=== PATIENT | female | born 1945 | race Caucasian/White ===

== ENCOUNTER 2024-10-30 15:45 | Observation (INO) | payer MEDICARE, SELFPAY ==
--- NOTE | 2024-10-30 15:53 | CA_ITS ---
APPROVED REPORT EXAM: Comprehensive 2D, Doppler, and color-flow Echocardiogram Assistant Prosecuting Attorney: Katie Romeo RVT Ht: 5 ft 7 in Wt: 180lbs BSA: 1.93 BP: 169/110 mmHg Indications: ANGINA,SHORTNESS OF BREATH 2D Dimensions Left Atrium 5.00 cm F: 2.7 - 3.8 LA Volume 47.50 mL RVID Base (AP4) 3.29 cm (M/F) 2.5-4.1 LA Volume Index 24.48 mL/m2 (M/F) 16-34 LVOT 2.07 cm (M/F) 1.5-2.5 EF AP4 52.50 % GL Strain -12.6 % M-Mode Dimensions RVDd 2.67 cm (0.9-2.6) LVDd 6.57 cm (3.5-5.7) Ao Diam 2.91 cm (2.0-3.7) LVDs 4.72 cm (3.5-5.7) IVSd 0.62 cm (0.6-1.1) PWd 0.67 cm (0.6-1.1) EF (Teich) 53.30% FS 28.20% EDV (Teich) 221.30 mL ESV (Teich) 103.40 mL LV Diastology E Decel Time 131 (160-240 msec) E/A Ratio 1.1 MED E' 8.6 (>= 7 cm/sec) E'/MED E' Ratio 7.28 (<= 14) LAT E' 6.2 (>= 10 cm/sec) E/LAT E' Ratio 10.10 (<= 14) Aortic Valve LVOT Max 105.0 (70-110 cm/s) SALVADOR Index 1.01 cm2/m2 LVOT VTI 16.51 cm AoV Peak Abdirashid. 142.0 (50-130 cm/s) AO Peak GR. 6.90 mmHg AO Mean GR. 3.80 (<5 mmHg) AO VTI 28.7 (18-25 cm) SALVADOR (VTI) 1.94 (2.5-4.5 cm2) Mitral Valve MV E Max Abdirashid. 63.0 (40-130 cm/s) MV A Velocity 56.0 (40-130 cm/s) E/A Ratio 1.12 MV Decel. Time 131 (160-240 ms) Left Ventricle The left ventricle is normal size. The left ventricular systolic function is normal. The left ventricular ejection fraction is within the normal range. There is increased LV wall thickness. There is normal LV segmental wall motion. Transmitral Doppler flow pattern suggests impaired LV relaxation. LVEF is 60%. Right Ventricle Right ventricle is mildly dilated. The right ventricular systolic function is normal. Atria Left atrium is mildly dilated. Right atrium is mildly dilated. There is no Doppler evidence of interatrial shunt. Aortic Valve The aortic valve is mildly thickened. There is no aortic valvular stenosis. No aortic regurgitation is present. Mitral Valve The mitral valve is normal in structure. No evidence of mitral valve stenosis. Trace mitral regurgitation. Tricuspid Valve Tricuspid valve is grossly normal in structure and function. Trace tricuspid regurgitation. There is insufficient TR jet to estimate RVSP. Pulmonic Valve The pulmonary valve is normal in structure. Trace pulmonic regurgitation. Great Vessels The aortic root is normal in size. IVC is normal in size and collapses >50% with inspiration. Pericardium There is no pericardial effusion. Other Information Study Quality: Fair Conclusion Normal biventricular systolic function. Mild RV dilation. Mild biatrial dilation. No significant valvular stenosis or regurgitation. Electronically signed by : Ladonna Schultz MD 10/31/2024 13:13:23
--- NOTE | 2024-10-30 15:59 | PC.NURSE ---
arrived by w/c from lobby admissions
[2024-10-30 16:10] VITALS: BP 162/73; PULSE 59; RESP 18; TEMP 36.8; O2SAT 97; BMI 27.8
--- NOTE | 2024-10-30 16:11 | EXP.HP ---
History of Present Illness *Admission Date: 10/30/24 *Reason for visit:: chest pain *History of present illness: Ms. Chen is a 79-year-old female who presented to cardiology clinic as an outpatient for preoperative evaluation today. She reportedly has been having some chest and back pain that is gotten worse over the past few weeks. Is supposed to be having kyphoplasty on a thoracic compression fracture this coming week but needed medical clearance. History appeared minimal with hypertension and hypothyroid on initial presentation to cardiology. Medicine was consulted for admission due to concern for unstable angina. I agreed to admit for further care. Upon arrival to the floor, patient's records from [facility] were obtained and further history elicited from patient. It appears that she has metastatic colon cancer (stage IV) with history of colon resection, mets to her liver and multiple nodules on bilateral lungs diffusely 5 to 10 mm in size. Patient reports that she was in the ER last week in [place] due to pain and was told she had had a heart attack. Troponin had a delta from 17-27. Also reports history of needing multiple revisions of hip replacement due to infection. Last surgery was in April. Has had to have hardware exchanged per her report. Saw anesthesia earlier this week for preoperative assessment, recommended she have cardiology clearance. Saw cardiology at [facility] who recommended further testing. This led to her coming to [facility] for further evaluation. 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 Is a former smoker. Quit smoking about 12 years ago. Currently has hypertension on lisinopril. Hypothyroid on levothyroxine. Unclear the source of her thoracic vertebral compression fracture. Denies any falls. I am suspicious it may be pathologic given her metastatic cancer. Was previously on salvage chemotherapy but stopped taking medications within the past few months. [facility] Disclaimer: The information contained in this section may have been updated after the patient was seen, as this information can be updated by other users. Medical History (Updated 10/30/24 @ 17:44 by Ryan Bianchi MD) Hypothyroid HTN (hypertension) Colon cancer Surgical History History of hip replacement Social History Smoking Status: Former smoker alcohol intake: never current occupational status: retired Travel in the last 8 weeks?: Inside the [place] Have you lived/traveled outside US in past 30 days?: No Contact w/someone who lives/traveled outside US past 30 days?: No Exposure to someone with infectious disease in past 14 days?: No Do you have a fever (greater than 100.4 F or 38 C)?: No Have you tested positive for COVID-19?: No Exposed to someone with COVID-19 in past 14 days?: No Do you have a sore throat?: No Do you have a cough?: No Do you have any weakness?: No Do you have any diarrhea?: No Are you experiencing any unusual bleeding?: No Do you have any muscle aches/pain?: No Do you have any abdominal pain?: No Are you experiencing loss of taste or smell?: No Other Medical History Have you received the Pneumonia Vaccine: No Meds Home Medications and Allergies Home Medications ?Medication ?Instructions ?Recorded ?Confirmed ?Type levothyroxine 125 mcg capsule 125 mcg PO DAILY 10/30/24 10/30/24 History lisinopril 5 mg tablet 5 mg PO DAILY 10/30/24 10/30/24 History New Prescriptions to Start Prescriptions: Allergies Allergy/AdvReac Type Severity Reaction Status Date / Time oxycodone AdvReac Mild Rash Verified 10/30/24 17:14 Exam Constitutional Constitutional: no acute distress, average body habitus, chronically ill appearing and cooperative *Routine HEENT Exam Head: Present normocephalic Eye: Present EOMI and PERRL ENT: Present mucous membranes moist *Routine Neck Exam Neck: Present supple; Absent lymphadenopathy *Routine Respiratory Exam Respiratory: Present prolonged expiratory phase; Absent rhonchi, wheezes or crackles *Routine Cardiovascular Exam Cardiovascular: Present RRR *Routine Abdominal Exam Abdominal: Present soft and normoactive bowel sounds; Absent tenderness *Routine Rectal Exam Rectal:: deferred *Routine Genitalia Exam Genitalia:: deferred *Routine Extremities Exam Extremities: Absent cyanosis, clubbing or edema *Routine Skin Exam Skin: Present warm; Absent rash *Routine Neurological Exam Neurological: Present alert, oriented X3 and moving all extremities; Absent altered mental status Comments: Poor historian Assessment and Plan *Assessment and plan (1) Unstable angina: Status: Acute Category: Medical Code(s): I20.0 - Unstable angina (2) HTN (hypertension): Status: Chronic Category: Medical Code(s): I10 - Essential (primary) hypertension (3) Hypothyroid: Status: Chronic Category: Medical Code(s): E03.9 - Hypothyroidism, unspecified (4) Malignant neoplasm of colon metastatic to lung: Status: Acute Category: Medical Code(s): C18.9 - Malignant neoplasm of colon, unspecified; C78.00 - Secondary malignant neoplasm of unspecified lung (5) Vertebral compression fracture: Status: Acute Category: Medical Code(s): M48.50XA - Collapsed vertebra, not elsewhere classified, site unspecified, initial encounter for fracture Plan 79-year-old female with vertebral compression fracture. Presented for preop evaluation. Concern for unstable angina. Discussed case with cardiology, request admission for further management. I agreed to admit for further workup. On further history, appears patient has metastatic colon cancer and may have recently had an NE. Necessitating further workup. Problems addressed as follows: Unstable angina Hypertension - Unclear if patient is having chest pain or referred pain from her back. Did have a delta troponin on review of outside records from hospital visit last week. - Hypertensive on presentation systolic 162, diastolic 73 - Additional 5 mg lisinopril. Increase lisinopril to 10 mg daily - EKG ordered, echo ordered, cardiology consulted to evaluate the morning - Initial labs with white count of 6.6, hemoglobin 11.5, platelets 183. Initial troponin less than 0.01. Kidney function normal with BUN 16, creatinine 0.6. Potassium 3.4. Will replace per electrolyte protocol. - Repeat CBC, CMP, magnesium ordered for the morning Hypothyroid: TSH pending, continue levothyroxine 125 mcg daily Metastatic colon cancer: Reportedly has lung mets per my review of imaging performed within the past week at [facility] in [place]. Will repeat CT chest without contrast and CT head due to patient's difficulty with history. Concern for possible cerebral mets. - Concern her compression fracture may be pathologic. Will evaluate vertebrae on CT Vertebral compression fracture: Pain (possibly from cancer versus fracture: - Patient appears to be on oxycodone 5 4 times a day and gabapentin 300 mg nightly. Will continue this regimen for now. Monitor for toxicity Full code PLOV Regular diet
[2024-10-30 16:14] VITALS: PULSE 70
--- NOTE | 2024-10-30 16:44 | CT_ITS ---
PROCEDURE INFORMATION: Exam: CT Head Without Contrast Exam date and time: 10/30/2024 6:16 PM Age: 79 years old Clinical indication: Other: Confusion TECHNIQUE: Imaging protocol: Computed tomography of the head without contrast. Radiation optimization: All CT scans at this facility use at least one of these dose optimization techniques: automated exposure control; mA and/or kV adjustment per patient size (includes targeted exams where dose is matched to clinical indication); or iterative reconstruction. COMPARISON: No relevant prior studies available. FINDINGS: Brain: No hemorrhage. Unremarkable white matter. No mass effect. Cerebral ventricles: No ventriculomegaly. Paranasal sinuses: Visualized sinuses are unremarkable. No fluid levels. Mastoid air cells: Visualized mastoid air cells are well aerated. Bones: Unremarkable. No acute fracture. Soft tissues: Unremarkable. IMPRESSION: No acute intracranial abnormality.
--- NOTE | 2024-10-30 16:44 | CT_ITS ---
PROCEDURE INFORMATION: Exam: CT Chest Without Contrast; Diagnostic Exam date and time: 10/30/2024 6:18 PM Age: 79 years old Clinical indication: Shortness of breath; Additional info: SOA TECHNIQUE: Imaging protocol: Diagnostic computed tomography of the chest without contrast. Radiation optimization: All CT scans at this facility use at least one of these dose optimization techniques: automated exposure control; mA and/or kV adjustment per patient size (includes targeted exams where dose is matched to clinical indication); or iterative reconstruction. COMPARISON: No relevant prior studies available. FINDINGS: Lungs: Multiple noncalcified pulmonary nodules are identified. Region size from a few mm up to the largest measuring 11 mm noted within the left lower lobe. There are few subcentimeter calcified granulomas identified. Pleural spaces: Unremarkable. No pneumothorax. No pleural effusion. Heart: See Vasculature finding. Coronary arteries: Three-vessel coronary artery calcifications. Lymph nodes: Unremarkable. No enlarged lymph nodes. Vasculature: The mediastinal structures including the esophagus, trachea, great vessels, and heart show no evidence of injury or acute pathologic processes. Liver: partially visualized low-attenuation region within the posterior segment right hepatic lobe measures 5.6 cm. This is not well evaluated on this exam. Suggestion that it could be a recent cryoablation or radiofrequency ablation site for an underlying liver tumor although please correlate clinically as a hepatic malignancy or hepatic abscess would not be excluded. Acute. Mild nodular surface architecture of the liver consistent with cirrhosis. Partially visualized simple hepatic cyst measures 5.3 cm. Spleen: Numerous splenic granulomas noted. Bones/joints: Compression fracture age indeterminate but there is some underlying sclerosis within a. Could be a pathologic compression fracture or a subacute compression fracture with healing. This is noted at the level of T12. Soft tissues: Unremarkable. IMPRESSION: 1. Numerous noncalcified pulmonary nodules. This should be considered pulmonary metastatic disease until proven otherwise. Patient does have MediPort catheter please correlate for history of underlying malignancy that is currently being treated. 2. Partially visualized low-attenuation region within the posterior segment right hepatic lobe measures 5.6 cm. This is not well evaluated on this exam. Suggestion that it could be a recent cryoablation or radiofrequency ablation site for an underlying liver tumor although please correlate clinically as a hepatic malignancy or hepatic abscess would not be excluded. Mild nodular surface architecture of the liver consistent with cirrhosis. 3. Compression fracture age indeterminate but there is some underlying sclerosis within a. Could be a pathologic compression fracture or a subacute compression fracture with healing. This is noted at the level of T12.
[2024-10-30 16:52] LABS: Basophils % 0.6 % (0.1-2.0); Eosinophils # 0.1 Kmm3 (0.0-0.4); Eosinophils % 1.2 % (0.1-12.0); Hematocrit 35.2 % (37.0-47.0); Hemoglobin 11.5 g/dL (12.2-16.2); Immature Granulocytes # 0.02 10^3uL; Immature Granulocytes % 0.3 %; Lymphocytes # 1.3 K/mm3 (0.7-4.5); Lymphocytes % 19.5 % (10-50); Mean Corpuscular HGB Conc 32.7 g/dL (31.8-35.4); Mean Corpuscular Hemoglobin 27.6 pg (27.0-31.2); Mean Corpuscular Volume 84.4 fl (81-99); Mean Platelet Volume 9.1 fl (7.4-10.4); Monocytes # 0.6 K/mm3 (0.1-1.0); Monocytes % 8.3 % (1.7-9.3); Neutrophils # 4.7 K/mm3 (1.8-7.8); Neutrophils % 70.1 % (37.0-80.0); Nucleated Red Blood Cells # 0 10^3/uL; Nucleated Red Blood Cells % 0 %; Platelet Count 183 K/mm3 (142-424); Red Blood Count 4.17 M/mm3 (4.20-5.40); Red Cell Distribution Width 17.2 % (11.5-17.5); Red Cell Distribution Width-SD 52.7 fL; White Blood Count 6.6 K/mm3 (4.8-10.8)
[2024-10-30 17:31] LABS: Alanine Aminotransferase 16 U/L (12-78); Albumin Level 3.6 g/dl (3.5-5.0); Albumin/Globulin Ratio 1.1 (1.1-1.8); Alkaline Phosphatase 89 U/L (38-126); Anion Gap 6.4 mEq/L (5-15); Aspartate Amino Transferase 26 U/L (14-36); Bilirubin,Total 0.6 mg/dl (0.2-1.3); Blood Urea Nitrogen 16 mg/dl (7-17); Calcium 8.8 mg/dl (8.4-10.2); Carbon Dioxide 26 mmol/L (22.0-30.0); Chloride 108 mmol/L (98-107); Creatinine Clearance Estimated 60 mL/min (50-200); Estimated Glomerular Filt Rate 97 ml/min (>60); GFR (African American) 117 ML/MIN (>60); Globulin 3.3 g/dL (1.3-3.2); Glucose 105 mg/dl (74-100); Magnesium 1.8 mg/dl (1.6-2.3); Potassium 3.4 mmoL/L (3.5-5.1); Sodium 137 mmol/L (136-145); Total Protein,Serum 6.9 g/dl (6.3-8.2)
[2024-10-30 17:47] LABS: Troponin I < 0.01 ng/ml (0.00-0.034)
[2024-10-30 18:01] LABS: Thyroid Stimulating Hormone 3.08 uIU/mL (0.465-4.68)
[2024-10-30 18:02] LABS: Microscopic, Urine URINE MICROSCOPIC (MICROSCOPIC)
[2024-10-30] MEDS: LISINOPRIL 5MG TABLET 5 MG PO (18:40)
[2024-10-30] MEDS: ENOXAPARIN 40MG/0.4ML SYRINGE 40 MG SUBCUT (18:41)
[2024-10-30 18:43] LABS: Appearance,Urine CLEAR (Clear); Blood, Urine Negative (Negative); Color,Urine YELLOW (Yellow); Glucose,Urine (UA) Negative (Negative); Ketones,Urine Negative (Negative); Leukocyte Esterase,Urine Negative (Negative); Nitrate,Urine Negative (Negative); Protein,Urine Negative (Negative); Specific Gravity, Urine 1.025 (1.005-1.030); Urobilinogen,Urine 0.2 EU/dl (0.2)
[2024-10-30 19:10] LABS: Bilirubin,Urine 1+ (Negative)
[2024-10-30 19:45] VITALS: BP 167/65; PULSE 64; RESP 20; TEMP 37.5; O2SAT 97
[2024-10-30 20:00] VITALS: PULSE 70
[2024-10-30 20:15] LABS: Bacteria,Urine Trace /lpf; Calcium Oxalate Crystals,Urine 1+ /lpf; Mucus,Urine Trace /lpf
[2024-10-30] MEDS: GABAPENTIN 300MG CAPSULE 300 MG PO (21:55)
[2024-10-31] VITALS: BP 102/50; PULSE 69; RESP 18; TEMP 37.2; O2SAT 99
--- NOTE | 2024-10-31 | CA_ITS ---
APPROVED REPORT Exam: Pharmacologic Technologist: Jovana Salmon Ht: 5 ft 7 in Wt: 177 lbs BSA: 1.92 m2 Medical History Medications: Levothyroxine, Lisinopril Stress Test Details Test: Lexiscan HR Resting HR: 67 bpm Max Heart Rate (APMHR): 143.939048 bpm Max HR Achieved: 87 bpm Target HR (85% APMHR): 121.554234 bpm % of APMHR: 60.84 Recovery HR: 82 bpm BP Resting BP: 157.0/71.0 mmHg Max BP: 157.0/71.0 mmHg Recovery BP: 143.0/64.0 mmHg ECG Resting ECG: SR Stress ECG Conclusion Symptoms: SOA, nausea. Arrhythmias/Ectopy: None. Lexiscan. ST-T Changes: None. Electronically signed by : Ladonna Schultz MD 11/03/2024 12:02:15
[2024-10-31] MEDS: hydrOXYzine pamoate 25MG CAPSULE 25 MG PO (00:03)
[2024-10-31 04:00] VITALS: BP 125/48; PULSE 73; RESP 20; TEMP 37.5; O2SAT 100; BMI 29.2
[2024-10-31 04:50] VITALS: PULSE 60
--- NOTE | 2024-10-31 06:39 | PC.NURSE ---
Pt stated she wears 2.5LNC at home, and stated she was sob. 2.5LNC was placed on pt. v/s, ox4. No acute events occured during shift. Plan of care ongoing.
[2024-10-31] MEDS: LEVOTHYROXINE 125MCG (0.125MG) TAB 125 MCG PO (06:45)
[2024-10-31] MEDS: ACETAMINOPHEN 325MG TAB 650 MG PO (07:45)
[2024-10-31 07:55] LABS: Basophils % 0.3 % (0.1-2.0); Eosinophils # 0.1 Kmm3 (0.0-0.4); Eosinophils % 1.2 % (0.1-12.0); Hematocrit 32.2 % (37.0-47.0); Hemoglobin 10.4 g/dL (12.2-16.2); Immature Granulocytes # 0.02 10^3uL; Immature Granulocytes % 0.3 %; Lymphocytes # 1.5 K/mm3 (0.7-4.5); Lymphocytes % 24.7 % (10-50); Mean Corpuscular HGB Conc 32.3 g/dL (31.8-35.4); Mean Corpuscular Hemoglobin 26.9 pg (27.0-31.2); Mean Corpuscular Volume 83.4 fl (81-99); Mean Platelet Volume 9.5 fl (7.4-10.4); Monocytes # 0.6 K/mm3 (0.1-1.0); Neutrophils # 3.8 K/mm3 (1.8-7.8); Neutrophils % 63.5 % (37.0-80.0); Nucleated Red Blood Cells # 0 10^3/uL; Nucleated Red Blood Cells % 0 %; Platelet Count 172 K/mm3 (142-424); Red Blood Count 3.86 M/mm3 (4.20-5.40); Red Cell Distribution Width 17.2 % (11.5-17.5); Red Cell Distribution Width-SD 51.8 fL; White Blood Count 5.9 K/mm3 (4.8-10.8)
--- NOTE | 2024-10-31 07:58 | HMH.PHAINT1 ---
Pharmacy Intervention Comments: HOME MEDICATION LIST VERIFIED USING LIST FROM OUTPATIENT PHARMACY AND PT INTERVIEW
[2024-10-31 08:00] VITALS: PULSE 60
[2024-10-31 08:06] LABS: Alanine Aminotransferase 13 U/L (12-78); Alkaline Phosphatase 79 U/L (38-126); Anion Gap 3.9 mEq/L (5-15); Aspartate Amino Transferase 23 U/L (14-36); Bilirubin,Total 0.8 mg/dl (0.2-1.3); Blood Urea Nitrogen 10 mg/dl (7-17); Calcium 8.7 mg/dl (8.4-10.2); Carbon Dioxide 28 mmol/L (22.0-30.0); Chloride 108 mmol/L (98-107); Creatinine Clearance Estimated 63 mL/min (50-200); Estimated Glomerular Filt Rate 120 ml/min (>60); GFR (African American) 145 ML/MIN (>60); Globulin 2.9 g/dL (1.3-3.2); Glucose 120 mg/dl (74-100); Magnesium 1.7 mg/dl (1.6-2.3); Potassium 3.9 mmoL/L (3.5-5.1); Sodium 136 mmol/L (136-145); Total Protein,Serum 5.9 g/dl (6.3-8.2)
[2024-10-31 08:30] LABS: Chol/HDL Ratio 3.5 (1-3.5); Cholesterol 144 mg/dl (140-200); HDL Cholesterol 41 mg/dl (40-60); Triglycerides 78 mg/dl (30-150); VLDL Cholesterol 16 mg/dL (0-40)
[2024-10-31 08:41] LABS: Direct LDL Cholesterol 67.04 mg/dL (100-129)
[2024-10-31] MEDS: SODIUM CHLORIDE 0.9% 10ML SYR (RAD ONLY) 10 ML IV (09:00)
[2024-10-31] MEDS: SODIUM CHLORIDE 0.9% 10ML FLUSH SYRINGE 10 ML IV (09:00)
--- NOTE | 2024-10-31 09:17 | PC.NURSE ---
Pt off floor for test.
[2024-10-31] MEDS: REGADENOSON 0.4MG/5ML SYRINGE 0.4 MG IV (10:10)
--- NOTE | 2024-10-31 10:24 | NM_ITS ---
APPROVED REPORT Exam: Nuclear Stress Test Indication: h/o NE, hypertension, cad, fm hx., sob, palpitations, fatigue, pre-op Patient Location: Outpatient Stress Tech: Jovana Glez [place] Tech:Michelle Delcid, ARRT RT (R)(N)(M) Ht: 5 ft 7 in Wt: 177 lbs Bra Size: d HR: 67 bpm BP: 157/71 mmHg BSA: 1.92 m2 TID: 1.03 BMI: 27.7 History: h/o NE, hypertension, cad, fm hx., sob, palpitations, fatigue, pre-op patient could not lay on stomach for prone images. Procedure: Patient received 0.4 mg of intravenous Lexiscan, resting heart rate 67 bpm, resting blood pressure 157/71 mmHg, with Lexiscan maximum heart rate achieved was 89 bpm which is % of the maximum predicted heart rate and blood pressure was 145/58 mmHg. With Lexiscan, patient denied any complaint of chest pain. Cardiac Stress and Resting SPECT Images: Cardiac Stress and Resting SPECT images were obtained using technetium 99m Myoview 30.9 mCi stress and 10.02 mCi at rest. The patient is unable to lie on her abdomen. Therefore, prone stress imaging could not be performed. Raw images also demonstrate significant soft tissue overlap with the cardiac borders. This may affect the diagnostic interpretation of the study findings. Resting and stress imaging in supine positions demonstrate no evidence of fixed or reversible perfusion defects. Gated imaging demonstrates normal global and regional LV systolic function. LVEF is calculated at 61%. Conclusion: No evidence of fixed or reversible perfusion defects. Gated imaging demonstrates normal global and regional LV systolic function. LVEF is calculated at 61%. Electronically signed by : Ladonna Schultz MD 10/31/2024 13:09:07
--- NOTE | 2024-10-31 10:45 | EXP.CARD.CON ---
History of Present Illness History of Present Illness Consult date: 10/31/24 Chief complaint: chest pain, soa, weakness History of present illness: 79-year-old white female new to our practice as an outpatient yesterday referred for evaluation of recent NE at outside facility needing surgical clearance for thoracic compression fracture in the setting of stage IV colon cancer with mets to lungs and liver. Patient denies prior cardiac history. States she presented to [place] emergency room several weeks ago with shortness of breath and weakness and was found to have elevated troponin and kept overnight for observation. She was told she would need cardiac clearance before she could have her thoracic kyphoplasty scheduled for next week. Her extensive cancer history is noted but she is planning to proceed with kyphoplasty due to his severe debilitating pain. Patient states she was on chemotherapy but stopped this several months ago due to intolerance. She is planning to follow-up with another oncologist in [place] to try another chemotherapy soon. Despite all of this patient reports she lives independently and is able to care for herself. [facility] Disclaimer: The information contained in this section may have been updated after the patient was seen, as this information can be updated by other users. Medical History Hypothyroid HTN (hypertension) Colon cancer Surgical History History of hip replacement Social History Smoking Status: Former smoker alcohol intake: never current occupational status: retired Travel in the last 8 weeks?: Inside the [place] Have you lived/traveled outside US in past 30 days?: No Contact w/someone who lives/traveled outside US past 30 days?: No Exposure to someone with infectious disease in past 14 days?: No Do you have a fever (greater than 100.4 F or 38 C)?: No Have you tested positive for COVID-19?: No Exposed to someone with COVID-19 in past 14 days?: No Do you have a sore throat?: No Do you have a cough?: No Do you have any weakness?: No Do you have any diarrhea?: No Are you experiencing any unusual bleeding?: No Do you have any muscle aches/pain?: No Do you have any abdominal pain?: No Are you experiencing loss of taste or smell?: No Review of Systems Constitutional Constitutional: Reports fatigue and Reports weakness Eyes Eyes: Denies loss of vision ENT Ears, Nose, Mouth, and Throat: Reports hearing loss and Reports vertigo *Cardiovascular Cardiovascular: Denies chest pain, Reports dyspnea and Denies syncope *Respiratory Respiratory: Denies cough and Reports dyspnea *Gastrointestinal Gastrointestinal: Denies change in stool character, Denies nausea and Denies vomiting *Musculoskeletal Musculoskeletal: Reports muscle weakness Integumentary/Breasts Skin/Breast: Denies changing lesions *Neurologic Neurologic: Denies loss of vision, Denies syncope, Reports vertigo and Reports weakness Endocrine Endocrine: Reports fatigue Exam Data for Last 24 hours Vital signs and Labs for Last 24 Hours: Temp Pulse Resp BP Pulse Ox O2 Del Method O2 Flow Rate 99.5 F 60 20 125/48 L 100 Nasal Cannula 2.5 10/31/24 04:00 10/31/24 04:50 10/31/24 04:00 10/31/24 04:00 10/31/24 04:00 10/31/24 07:50 10/31/24 07:50 Laboratory Results - last 24 hr 10/30/24 16:40: WBC 6.6, RBC 4.17 L, Hgb 11.5 L, Hct 35.2 L, MCV 84.4, MCH 27.6, MCHC 32.7, RDW 17.2, Plt Count 183, MPV 9.1, Neut % (Auto) 70.1, Lymph % (Auto) 19.5, [place] % (Auto) 8.3, Eos % (Auto) 1.2, Baso % (Auto) 0.6, Neut # (Auto) 4.7, Lymph # (Auto) 1.3, [place] # (Auto) 0.6, Eos # (Auto) 0.1, Baso # (Auto) 0.0, Sodium 137, Potassium 3.4 L, Chloride 108 H, Carbon Dioxide 26, Anion Gap 6.4, BUN 16, Creatinine 0.60, Estimated Creat Clear 60, Estimated GFR 97, Est GFR ( Amer) 117, Glucose 105 H, Calcium 8.8, Magnesium 1.8, Total Bilirubin 0.6, AST 26, ALT 16, Alkaline Phosphatase 89, Troponin I < 0.01, Total Protein 6.9, Albumin 3.6, Globulin 3.3 H, Albumin/Globulin Ratio 1.1, TSH 3.08 10/30/24 18:00: Urine Color Yellow, Urine Appearance Clear, Urine pH 6.0, Ur Specific [place] 1.025, Urine Protein Negative, Urine Glucose (UA) Negative, Urine Ketones Negative, Urine Blood Negative, Urine Nitrate Negative, Urine Bilirubin 1+ A, Urine Urobilinogen 0.2, Ur Leukocyte Esterase Negative, Urine RBC 5-10, Urine WBC 3-5, Calcium Oxalate Crystal 1+, Urine Bacteria Trace, Urine Mucus Trace 10/31/24 07:30: WBC 5.9, RBC 3.86 L, Hgb 10.4 L, Hct 32.2 L, MCV 83.4, MCH 26.9 L, MCHC 32.3, RDW 17.2, Plt Count 172, MPV 9.5, Neut % (Auto) 63.5, Lymph % (Auto) 24.7, [place] % (Auto) 10.0 H, Eos % (Auto) 1.2, Baso % (Auto) 0.3, Neut # (Auto) 3.8, Lymph # (Auto) 1.5, [place] # (Auto) 0.6, Eos # (Auto) 0.1, Baso # (Auto) 0.0, Sodium 136, Potassium 3.9, Chloride 108 H, Carbon Dioxide 28, Anion Gap 3.9 L, BUN 10 D, Creatinine 0.50 L, Estimated Creat Clear 63, Estimated GFR 120, Est GFR ( Amer) 145 D, Glucose 120 H, Calcium 8.7, Magnesium 1.7, Total Bilirubin 0.8, AST 23, ALT 13, Alkaline Phosphatase 79, Total Protein 5.9 L, Albumin 3.0 L D, Globulin 2.9, Albumin/Globulin Ratio 1.0 L, Triglycerides 78, Cholesterol 144, LDL Cholesterol Direct 67.04 L, VLDL Cholesterol 16, HDL Cholesterol 41, Cholesterol/HDL Ratio 3.5 I & O for Last 24 hours: Intake & Output 10/28/24 10/29/24 10/30/24 10/31/24 23:59 23:59 23:59 23:59 Intake Total 120 / 120 Output Total 600 / 600 Balance -600 / -480 120 / 120 Weight 177 lb 12.8 oz 186 lb 9.6 oz Constitutional Constitutional: no acute distress and cooperative *Routine HEENT Exam Eye: Present PERRL *Routine Respiratory Exam Respiratory: Present CTA bilaterally; Absent accessory muscle use, wheezes or crackles *Routine Cardiovascular Exam Cardiovascular: Present RRR, Normal S1 and Normal S2; Absent murmur, gallop or rubs *Routine Abdominal Exam Abdominal: Present soft; Absent tenderness *Routine Extremities Exam Extremities: Present pulses intact; Absent cyanosis or edema *Routine Skin Exam Skin: Present intact; Absent erythema or wounds *Routine Neurological Exam Neurological: Present alert and oriented X3 Routine Psychiatric Exam Psychiatric: Present cooperative Meds Home Medications and Allergies Home Medications ?Medication ?Instructions ?Recorded ?Confirmed ?Type gabapentin 300 mg capsule 300 mg PO HS 10/30/24 10/31/24 History hydroxyzine pamoate 25 mg capsule 25 mg PO HS 10/30/24 10/30/24 History levothyroxine 125 mcg capsule 125 mcg PO DAILY 10/30/24 10/30/24 History lisinopril 5 mg tablet 10 mg (2 x 5 mg) PO DAILY 30 days 10/31/24 10/30/24 Rx #30 tabs tizanidine 2 mg tablet 2 mg PO HS 10/31/24 10/31/24 History New Prescriptions to Start Prescriptions: Allergies Allergy/AdvReac Type Severity Reaction Status Date / Time oxycodone AdvReac Mild Rash Verified 10/30/24 17:14 Assessment and Plan *Assessment and plan (1) Unstable angina: Status: Acute Category: Medical Code(s): I20.0 - Unstable angina (2) Malignant neoplasm of colon metastatic to lung: Status: Acute Category: Medical Code(s): C18.9 - Malignant neoplasm of colon, unspecified; C78.00 - Secondary malignant neoplasm of unspecified lung (3) Vertebral compression fracture: Status: Acute Category: Medical Code(s): M48.50XA - Collapsed vertebra, not elsewhere classified, site unspecified, initial encounter for fracture (4) Hypothyroid: Status: Chronic Category: Medical Code(s): E03.9 - Hypothyroidism, unspecified (5) HTN (hypertension): Status: Chronic Category: Medical Code(s): I10 - Essential (primary) hypertension Plan Preoperative evaluation - Recent observation admission for elevated troponin in the setting of class IV anginal equivalent dyspnea on exertion - EKG shows sinus rhythm with diffuse flattening of her ST segments and T waves, low voltage. Normal troponin here - Will check 2D echo and Lexiscan Myoview to assess CV risk prior to palliative thoracic kyphoplasty in the setting of metastatic cancer Hypertension - Well-controlled, continue home medicine Stage IV colon cancer with mets to lungs and liver - Currently not on chemotherapy, following with oncologist in [place] Hypothyroidism - Continue home meds Addendum: 2D echo reveals normal BiV function, mild RV dilation, mild biatrial dilation, no significant valvular stenosis or regurgitation.Lexiscan Myoview showed no evidence of fixed or reversible perfusion defects. As result of these 2 studies patient is at average cardiovascular risk for kyphoplasty but patient's overall mortality risk is high considering her known comorbidities. No further CV changes recommended at this time, please advise if we can be of further assistance this admission thank you
[2024-10-31] MEDS: ISOTOPE MYOVIEW (PER STUDY) 1 DOSE IV (11:54)
[2024-10-31 12:00] VITALS: BP 140/66; PULSE 50; PULSE 57; RESP 18; TEMP 36.7; O2SAT 100
[2024-10-31] MEDS: MAGNESIUM SULFATE IN WATER 2 GM/50 ML PIGGYBACK IV ×2 (14:34→15:26)
--- NOTE | 2024-10-31 15:10 | P.DS_ITS ---
<Statement entered by Alonso Colby MD - 11/04/24 12:33> Personally evaluated the patient and agree with plan of care as outlined by the RADIATOR SPECIALIST. General Admission date:: 10/30/24 Discharge date: 10/31/24 HPI HPI HPI: Ms. Chen is a 79-year-old female who presented to cardiology clinic as an outpatient for preoperative evaluation today. She reportedly has been having some chest and back pain that is gotten worse over the past few weeks. Is supposed to be having kyphoplasty on a thoracic compression fracture this coming week but needed medical clearance. History appeared minimal with hypertension and hypothyroid on initial presentation to cardiology. Medicine was consulted for admission due to concern for unstable angina. I agreed to admit for further care. Upon arrival to the floor, patient's records from [facility] were obtained and further history elicited from patient. It appears that she has metastatic colon cancer (stage IV) with history of colon resection, mets to her liver and multiple nodules on bilateral lungs diffusely 5 to 10 mm in size. Patient reports that she was in the ER last week in [place] due to pain and was told she had had a heart attack. Troponin had a delta from 17-27. Also reports history of needing multiple revisions of hip replacement due to infection. Last surgery was in April. Has had to have hardware exchanged per her report. Saw anesthesia earlier this week for preoperative assessment, recommended she have cardiology clearance. Saw cardiology at [facility] who recommended further testing. This led to her coming to [facility] for further evaluation. 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 Is a former smoker. Quit smoking about 12 years ago. Currently has hypertension on lisinopril. Hypothyroid on levothyroxine. Unclear the source of her thoracic vertebral compression fracture. Denies any falls. I am suspicious it may be pathologic given her metastatic cancer. Was previously on salvage chemotherapy but stopped taking medications within the past few months. Hospital Course Hospital Course Hospital Course: 79-year-old female with vertebral compression fracture. Presented for preop evaluation. Concern for unstable angina. Discussed case with cardiology, request admission for further management. I agreed to admit for further workup. On further history, appears patient has metastatic colon cancer and may have recently had an AK. Necessitating further workup. Problems addressed as follows: #Unstable angina #Hypertension - On admission unclear if patient is having chest pain or referred pain from her back. Patient had elevated troponin last week from outside hospital. Troponin on admission is less than 0.01 - Hypertensive on presentation on admission, lisinopril increased from 5 mg to 10 mg daily, blood pressures have been stable last blood pressure 125/48. -Patient's echo shows LVEF is approximately 60%, nuclear stress test performed this morning, Showing no evidence of fixed or reversible perfusion defects, gated imaging demonstrates normal global and regional LV systolic function. - Initial labs with white count of 6.6, hemoglobin 11.5, platelets 183. Initial troponin less than 0.01. Kidney function normal with BUN 16, creatinine 0.6. Potassium 3.4, replace per protocol. Potassium today is 3.9. #Hypothyroid - TSH 3.08, continue levothyroxine 125 mcg daily at discharge. #Metastatic colon cancer ?Reportedly has lung mets per my review of imaging performed within the past week at [facility] in [place]. Will repeat CT chest without contrast and CT head due to patient's difficulty with history. Concern for possible cerebral mets. ?Head CT performed 10/30 shows no acute intracranial abnormalities. I independently reviewed the chest CT which showed numerous pulmonary nodules. It also showed a compression fracture at the T12, known to patient and planned operative surgery next week. #Vertebral compression fracture #Pain (possibly from cancer versus fracture): - Patient appears to be on oxycodone 5 4 times a day and gabapentin 300 mg nightly. Discussed this with patient, patient states she is allergic to oxycodone and that it causes her nausea, vomiting, and rash. She states it was prescribed by her doctor but she is unable to take it. Ordered [place] 5/325 mg every 6 hours as needed for pain. She states that she has taken this before without any issues. Reordered gabapentin 300 mg nightly, patient should continue at discharge. Total time spent on discharge 28 minutes in counseling, documentation, chart review, and direct care with patien Exam Data for Last 24 hours Vital signs and Labs for Last 24 Hours: Temp Pulse Resp BP Pulse Ox O2 Del Method O2 Flow Rate 98.1 F 57 L 18 140/66 100 Nasal Cannula 2.5 10/31/24 12:00 10/31/24 12:00 10/31/24 12:00 10/31/24 12:00 10/31/24 12:00 10/31/24 14:57 10/31/24 14:57 Laboratory Results - last 24 hr 10/30/24 16:40: WBC 6.6, RBC 4.17 L, Hgb 11.5 L, Hct 35.2 L, MCV 84.4, MCH 27.6, MCHC 32.7, RDW 17.2, Plt Count 183, MPV 9.1, Neut % (Auto) 70.1, Lymph % (Auto) 19.5, [place] % (Auto) 8.3, Eos % (Auto) 1.2, Baso % (Auto) 0.6, Neut # (Auto) 4.7, Lymph # (Auto) 1.3, [place] # (Auto) 0.6, Eos # (Auto) 0.1, Baso # (Auto) 0.0, Sodium 137, Potassium 3.4 L, Chloride 108 H, Carbon Dioxide 26, Anion Gap 6.4, BUN 16, Creatinine 0.60, Estimated Creat Clear 60, Estimated GFR 97, Est GFR ( Amer) 117, Glucose 105 H, Calcium 8.8, Magnesium 1.8, Total Bilirubin 0.6, AST 26, ALT 16, Alkaline Phosphatase 89, Troponin I < 0.01, Total Protein 6.9, Albumin 3.6, Globulin 3.3 H, Albumin/Globulin Ratio 1.1, TSH 3.08 10/30/24 18:00: Urine Color Yellow, Urine Appearance Clear, Urine pH 6.0, Ur Specific [place] 1.025, Urine Protein Negative, Urine Glucose (UA) Negative, Urine Ketones Negative, Urine Blood Negative, Urine Nitrate Negative, Urine Bilirubin 1+ A, Urine Urobilinogen 0.2, Ur Leukocyte Esterase Negative, Urine RBC 5-10, Urine WBC 3-5, Calcium Oxalate Crystal 1+, Urine Bacteria Trace, Urine Mucus Trace 10/31/24 07:30: WBC 5.9, RBC 3.86 L, Hgb 10.4 L, Hct 32.2 L, MCV 83.4, MCH 26.9 L, MCHC 32.3, RDW 17.2, Plt Count 172, MPV 9.5, Neut % (Auto) 63.5, Lymph % (Auto) 24.7, [place] % (Auto) 10.0 H, Eos % (Auto) 1.2, Baso % (Auto) 0.3, Neut # (Auto) 3.8, Lymph # (Auto) 1.5, [place] # (Auto) 0.6, Eos # (Auto) 0.1, Baso # (Auto) 0.0, Sodium 136, Potassium 3.9, Chloride 108 H, Carbon Dioxide 28, Anion Gap 3.9 L, BUN 10 D, Creatinine 0.50 L, Estimated Creat Clear 63, Estimated GFR 120, Est GFR ( Amer) 145 D, Glucose 120 H, Calcium 8.7, Magnesium 1.7, Total Bilirubin 0.8, AST 23, ALT 13, Alkaline Phosphatase 79, Total Protein 5.9 L, Albumin 3.0 L D, Globulin 2.9, Albumin/Globulin Ratio 1.0 L, Triglycerides 78, Cholesterol 144, LDL Cholesterol Direct 67.04 L, VLDL Cholesterol 16, HDL Cholesterol 41, Cholesterol/HDL Ratio 3.5 I & O for Last 24 hours: Intake & Output 10/28/24 10/29/24 10/30/24 10/31/24 23:59 23:59 23:59 23:59 Intake Total 120 / 120 Output Total 600 / 600 Balance -600 / -480 120 / 120 Weight 80.649 kg 84.64 kg Constitutional Constitutional: no acute distress *Routine HEENT Exam Head: Present normocephalic Eye: Present PERRL *Routine Neck Exam Neck: Present full ROM *Routine Respiratory Exam Respiratory: Present CTA bilaterally, able to speak in complete sentences and symmetric chest movement *Routine Cardiovascular Exam Cardiovascular: Present RRR *Routine Abdominal Exam Abdominal: Present soft and normoactive bowel sounds; Absent tenderness *Routine Extremities Exam Extremities: Present full ROM and normal capillary refill *Routine Skin Exam Skin: Present intact *Routine Neurological Exam Neurological: Present alert and oriented X3 Results Data Completed and Pending Labs on day of discharge: Labs from last 24 hours 10/31/24 10/30/24 10/30/24 07:30 18:00 16:40 WBC 5.9 6.6 RBC 3.86 L 4.17 L Hgb 10.4 L 11.5 L Hct 32.2 L 35.2 L MCV 83.4 84.4 MCH 26.9 L 27.6 MCHC 32.3 32.7 RDW 17.2 17.2 Plt Count 172 183 MPV 9.5 9.1 Neut % (Auto) 63.5 70.1 Lymph % (Auto) 24.7 19.5 [place] % (Auto) 10.0 H 8.3 Eos % (Auto) 1.2 1.2 Baso % (Auto) 0.3 0.6 Neut # (Auto) 3.8 4.7 Lymph # (Auto) 1.5 1.3 Jay # (Auto) 0.6 0.6 Eos # (Auto) 0.1 0.1 Baso # (Auto) 0.0 0.0 Sodium 136 137 Potassium 3.9 3.4 L Chloride 108 H 108 H Carbon Dioxide 28 26 Anion Gap 3.9 L 6.4 BUN 10 D 16 Creatinine 0.50 L 0.60 Estimated Creat Clear 63 60 Estimated GFR 120 97 Est GFR ( Amer) 145 D 117 Glucose 120 H 105 H Calcium 8.7 8.8 Magnesium 1.7 1.8 Total Bilirubin 0.8 0.6 AST 23 26 ALT 13 16 Alkaline Phosphatase 79 89 Troponin I < 0.01 Total Protein 5.9 L 6.9 Albumin 3.0 L D 3.6 Globulin 2.9 3.3 H Albumin/Globulin Ratio 1.0 L 1.1 Triglycerides 78 Cholesterol 144 LDL Cholesterol Direct 67.04 L VLDL Cholesterol 16 HDL Cholesterol 41 Cholesterol/HDL Ratio 3.5 TSH 3.08 Urine Color Yellow Urine Appearance Clear Urine pH 6.0 Ur Specific [place] 1.025 Urine Protein Negative Urine Glucose (UA) Negative Urine Ketones Negative Urine Blood Negative Urine Nitrate Negative Urine Bilirubin 1+ A Urine Urobilinogen 0.2 Ur Leukocyte Esterase Negative Urine RBC 5-10 Urine WBC 3-5 Calcium Oxalate Crystal 1+ Urine Bacteria Trace Urine Mucus Trace DS: Diagnosis Discharge Diagnosis (1) Unstable angina: Status: Acute Code(s): I20.0 - Unstable angina (2) Malignant neoplasm of colon metastatic to lung: Status: Acute Code(s): C18.9 - Malignant neoplasm of colon, unspecified; C78.00 - Secondary malignant neoplasm of unspecified lung (3) Vertebral compression fracture: Status: Acute Code(s): M48.50XA - Collapsed vertebra, not elsewhere classified, site unspecified, initial encounter for fracture (4) Hypothyroid: Status: Chronic Code(s): E03.9 - Hypothyroidism, unspecified (5) HTN (hypertension): Status: Chronic Code(s): I10 - Essential (primary) hypertension Meds Home Medications and Allergies Home Medications ?Medication ?Instructions ?Recorded ?Confirmed ?Type gabapentin 300 mg capsule 300 mg PO HS 10/30/24 History hydroxyzine pamoate 25 mg capsule 25 mg PO HS 10/30/24 10/30/24 History levothyroxine 125 mcg capsule 125 mcg PO DAILY 5 10/30/24 History lisinopril 5 mg tablet 5 mg PO DAILY 10/30/2410/30 History tizanidine 2 mg tablet 2 mg PO HS 10/31/24 10/31/24 History New Prescriptions to Start Prescriptions: Allergies Allergy/AdvReac Type Severity Reaction Status Date / Time oxycodone AdvReac Mild Rash Verified 10/30/24 17:14 Discharge Plan Disposition Patient Disposition: Home, Self-Care Condition: Fair Follow up Plan Follow up with: Fabrice Trejo MD [Staff Physician, Cardiology] - Enter time for follow up Prescriptions/Medication Reconciliation: Continued lisinopril 5 mg tablet 5 mg PO DAILY levothyroxine 125 mcg capsule 125 mcg PO DAILY gabapentin 300 mg capsule 300 mg PO HS hydroxyzine pamoate 25 mg capsule 25 mg PO HS tizanidine 2 mg tablet 2 mg PO HS Problem Reconciliation Problems Reviewed?: Yes Patient Discharge Instructions ACTIVITY: Continue current activity DIET: continue same diet Patient Instructions: Angina (Alternative Therapy), Angina Print Language: Slovenian Providers Primary Care Provider: Provider,Referral Admit Provider: Ryan Bianchi Attending Provider: Ryan Bianchi
--- NOTE | 2024-11-03 10:57 | SW/DCPLANNER ---
Spoke with patient on the phone. Patient stated that she is feeling good. Patient stated that she has scheduled her back surgery for November 17. Patient stated that she has not called to schedule her follow up appointment with DR Trejo. Patient stated that she has no concerns or questions at this time. Ruthie Mccrary
== END 2024-10-31 17:07 | disposition home or self-care (01) ==
PROVIDERS: Admitting Provider Internal Medicine Adolescent Medicine; Visit Provider Internal Medicine Adolescent Medicine
DX: I20.0 Unstable angina (principal); C18.9 Malignant neoplasm of colon, unspecified; C78.00 Secondary malignant neoplasm of unspecified lung; C78.7 Secondary malignant neoplasm of liver and intrahepatic bile duct; M48.54XA Collapsed vertebra, not elsewhere classified, thoracic region, initial encounter for fracture; I10 Essential (primary) hypertension; E03.9 Hypothyroidism, unspecified; I25.2 Old myocardial infarction; Z96.649 Presence of unspecified artificial hip joint; Z87.891 Personal history of nicotine dependence; Z79.890 Hormone replacement therapy; Z79.899 Other long term (current) drug therapy; Z88.5 Allergy status to narcotic agent
CPT/HCPCS: 96372; 96374; 96375; 96376; 36415; 70450; 71250; 78452; 80053; 80061; 81001; 83735; 84443; 84484; 85025; 93017; 93018; 93306; A9502; G0378; J1642; J1650; J2785; J3475